=== PATIENT | female | born 1980 | race Caucasian/White ===

== ENCOUNTER 2018-05-11 11:51 | Emergency (ER) | payer MEDICAID, SELFPAY ==
[2018-05-11 11:55] VITALS: BP 107/70; PULSE 110; RESP 18; TEMP 36.9; O2SAT 99
[2018-05-11 12:56] VITALS: BP 117/73; PULSE 99; TEMP 36.8; O2SAT 97
--- NOTE | 2018-05-11 13:07 | ED.SKABFB ---
HPI - Skin/Abscess/Foreign Bdy <CHIKI Kennedy - Last Filed: 05/11/18 22:25> General Chief complaint: Skin/Abscess/Foreign Body Stated complaint: ABCESS ON BUTTOCK Time Seen by Provider: 05/11/18 12:59 Source: patient Mode of arrival: ambulatory Limitations: no limitations History of Present Illness HPI narrative: 37-year-old female with current history of heroin abuse at is an everyday smoker here for complaint of abscesses to her buttocks area. Patient is also a meth user, She was treated for this 2 days ago with I&D and placed on clindamycin. She was seen today at [facility] and referral was placed for wound care. Packing was removed from the left abscess however patient had pain into that area so they stopped and had patient come here. Patient wants pain medication. She states she is currently taking antibiotics as prescribed. No fevers. 2 Abscesses are to her left and right buttocks where she injected heroin in that area over a week ago. MD complaint: abscess/boil Related Data Home Medications Medication Instructions Recorded Confirmed ALPRAZOLAM 1 mg PO BID #0 11/25/05 Citalopram Hydrobromide 20 mg PO #0 11/25/05 (Citalopram HBr) NITROFURANTOIN, MACROCRYSTALS 50 mg PO HS #0 11/25/05 (Nitrofurantoin) [CRYSELLE] Q DAY #0 11/25/05 Allergies Allergy/AdvReac Type Severity Reaction Status Date / Time PCN Allergy Intermediate RASH Uncoded 07/26/17 12:04 Review of Systems <CHIKI Kennedy - Last Filed: 05/11/18 22:25> Constitutional Denies chills, Denies fever(s), Denies lethargy and Denies weakness Eyes Denies change in vision, Denies eye discharge, Denies irritation and Denies loss of vision ENT Ears, Nose, Mouth, and Throat: Denies change in voice, Denies neck pain and Denies sore throat Cardiovascular Denies chest pain, Denies irregular heart rhythm, Denies lightheadedness, Denies palpitations, Denies dyspnea, Denies dyspnea on exertion and Denies orthopnea Respiratory Denies cough, Denies dyspnea, Denies dyspnea on exertion and Denies wheezing Gastrointestinal Gastrointestinal: Denies abdominal pain, Denies change in bowel habits, Denies diarrhea, Denies nausea and Denies vomiting Genitourinary Denies hematuria, Denies flank pain, Denies urinary incontinence and Denies urinary urgency Musculoskeletal Denies neck pain Integumentary/Breasts Comments: Abscess to buttocks Neurologic Denies loss of vision and Denies weakness Endocrine Denies palpitations Allergic/Immunologic Denies wheezing Exam <CHIKI Kennedy - Last Filed: 05/11/18 22:25> Initial Vital Signs Initial Vital Signs: Vital Signs Temperature 98.4 F 05/11/18 11:55 Pulse Rate 110 H 05/11/18 11:55 Respiratory Rate 18 05/11/18 11:55 Blood Pressure 107/70 05/11/18 11:55 Pulse Oximetry 99 05/11/18 11:55 Const General: cooperative and well developed Nutritional Appearance: well nourished Orientation: alert, awake, oriented x3 and not confused HENMT Mouth: oral mucosae normal and mucous membranes abnormal Eyes Conjunctivae: conjunctivae normal Sclera: sclerae normal Pupils: PERRL EOM: EOM intact bilaterally Resp Effort & Inspection: normal respiratory effort, able to speak in complete sentences, no respiratory distress and no use of accessory muscles Auscultation: clear to auscultation bilaterally, no rales, no rhonchi and no wheezes Cardio Rate: regular rate Rhythm: regular rhythm Heart Sounds: no click, no gallops, no murmurs and no rubs Pulses: normal peripheral pulses Skin Other: Abscess to left buttocks with area of erythema of approximately 7 cm. Draining serosanguineous drainage from a I and D site that was completed a few days ago. No induration or fluctuance appreciated. Abscess to right buttocks with area of redness of approximately 3 cm area packing was removed from I&D area. No induration or fluctuance. Neuro General: alert, oriented x3, gait normal and no focal motor deficits Speech: speech normal <Jamar Lee DO - Last Filed: 05/12/18 07:02> Initial Vital Signs Initial Vital Signs: Vital Signs Temperature 98.4 F 05/11/18 11:55 Pulse Rate 110 H 05/11/18 11:55 Respiratory Rate 18 05/11/18 11:55 Blood Pressure 107/70 05/11/18 11:55 Pulse Oximetry 99 05/11/18 11:55 Course <CHIKI Kennedy - Last Filed: 05/11/18 22:25> Vital Signs - 8 hr 05/11/18 11:55 05/11/18 12:56 Temperature 98.4 F 98.3 F Pulse Rate 110 H 99 H Respiratory Rate 18 Blood Pressure 107/70 Blood Pressure [Right Arm] 117/73 Pulse Oximetry 99 97 <Jamar Lee DO - Last Filed: 05/12/18 07:02> Vital Signs - 8 hr 05/11/18 11:55 05/11/18 12:56 Temperature 98.4 F 98.3 F Pulse Rate 110 H 99 H Respiratory Rate 18 Blood Pressure 107/70 Blood Pressure [Right Arm] 117/73 Pulse Oximetry 99 97 MDM - Skin/Abscess/Foreign Bdy <CHIKI Kennedy - Last Filed: 05/11/18 22:25> MDM Narrative Medical decision making narrative: Abscesses to buttocks area appears to be healing with no fluctuance or induration appreciated at this time. Desired to get ultrasound of the left buttocks area to ensure no deeper pockets of infection are seen in need to be drained. Patient desired to have a pain medication. However due to her current use of heroin and also methadone at the same time informed patient that I was not comfortable in prescribing her narcotics. Recommended that she use Tylenol as needed for discomfort. Patient was not happy with the decision of not giving her narcotics and decided to leave abruptly she refused wound care treatment to the area including repacking and flushing along with ultrasound. Patient eloped with no further care being able to be done. Was recommended that she follow up with wound care in the next few days as [facility]. Continue taking antibiotics as directed return emergency room for worsening symptoms. Discharge Plan Departure Patient Disposition: Left Against Medical Advice Clinical Impression: Abscess of buttock, left, Abscess of buttock, right Discharge Date/Time: 05/11/18 13:58 Interventions: ED Discharge Assessment Last Done: 05/11/18 13:57 Instructions: DI for Skin Abscess Activity Restrictions/Additional Instructions: Follow-up with wound care call the office to schedule appointment in the next few days. Continue taking antibiotics as directed. Use Tylenol as needed for discomfort. For any worsening symptoms return emergency room. Follow up with primary care provider. Prescriptions: No Action ALPRAZOLAM 1 mg PO BID Qty: 0 RF: 0 Citalopram Hydrobromide (Citalopram HBr) 20 mg PO Qty: 0 RF: 0 NITROFURANTOIN, MACROCRYSTALS (Nitrofurantoin) 50 mg PO HS Qty: 0 RF: 0 [CRYSELLE] Q DAY Qty: 0 RF: 0 Referrals: [facility] [Provider Group] Stand Alone Forms: Against Medical Advice <Jamar Lee DO - Last Filed: 05/12/18 07:02> Cosign ED Attending Lester Attestation: I was available for consultation during this patient's emergency department encounter
--- NOTE | 2018-05-11 13:44 | PC.NURSE ---
in room with reji to view pt wounds. pt had dressing on lower buttocks (each side). removed packing from rt side. pt asked for pain medication. reji explained not comfortable giving narcotics while she gets methadone and using heroin. pt was offered an Ultrasound and to repack along with new dressings. pt states i knew i wouldn't be able to pain medicine pt got up from bed and started dressing. i offered to cover wounds, pt didn't respond, continued to dress and walked out of room. pt was originally sent by [facility].
== END 2018-05-11 13:58 | disposition left against medical advice (07) ==
PROVIDERS: Emergency Provider Nurse Practitioner Family
DX: L02.31 Cutaneous abscess of buttock (principal)
CPT/HCPCS: 99282